=== PATIENT | male | born 1950 | race Caucasian/White ===

== ENCOUNTER 2018-03-01 21:32 | Emergency (ER) | payer MEDICARE, OTHER ==
[2018-03-02] MEDS: CEPHALEXIN 500 MG CAP PO (01:06)
[2018-03-02] MEDS: predniSONE 20 MG TAB PO (01:07)
== END 2018-03-02 01:25 | disposition home or self-care (01) ==
LOC: FTE 21:32
DX: S40.862A Insect bite (nonvenomous) of left upper arm, initial encounter (principal); E11.9 Type 2 diabetes mellitus without complications; W57.XXXA Bitten or stung by nonvenomous insect and other nonvenomous arthropods, initial encounter; Y92.9 Unspecified place or not applicable
CPT/HCPCS: 99283